=== PATIENT | male | born 1975 | race Caucasian/White ===

== ENCOUNTER → 2017-06-09 | Outpatient (CLI) | payer OTHER | LOC: M WUC 14:56 | DX: M54.5 Low back pain (principal); M47.896 Other spondylosis, lumbar region | CPT/HCPCS: 72110 ==

== ENCOUNTER 2018-06-22 10:09 | Day surgery (SDC) | payer OTHER ==
[~2018-06-22] VITALS: Ht 185.4 cm; Wt 102.1 kg
[~2018-06-22 10:09] MED LIST: AMLO10TA5 PO; DRIS50003 PO; IBUP80TA PO; LISI40TA PO; LR 1,000 ML IV ONE; LevoFLOXacin IV 500 MG in APPROPRIATE DILUENT 1 EA IV ONE; MELA3TAB PO; TIZA4CAP; VENTAER INH
[2018-06-22] MEDS ORDERED: PROPOFOL 200 MG/20 ML VIAL As Ordered ONE (10:44)
[2018-06-22] MEDS ORDERED: SUGAMMADEX SODIUM 500 MG/5 ML VIAL (BRIDION) As Ordered ONE ×2 (10:44→12:33)
[2018-06-22] MEDS ORDERED: ONDANSETRON 4MG/2ML VIAL (J2405) As Ordered ONE (10:44)
[2018-06-22] MEDS ORDERED: dexameTHASONE 4 MG/ML 1ML VIAL (J1100) As Ordered ONE (10:44)
[2018-06-22] MEDS ORDERED: LIDOCAINE 2% INJ 100 MG/5 ML SDV (FOR ANES.) As Ordered ONE (10:44)
[2018-06-22] MEDS ORDERED: ROCURONIUM BROMIDE 50 MG/5 ML VIAL As Ordered ONE ×2 (10:44→12:33)
[2018-06-22] MEDS ORDERED: KETAMINE HCL 200 MG/20 ML VIAL As Ordered ONE (10:45)
[2018-06-22] MEDS ORDERED: KETOROLAC 60 MG/2 ML VIAL (J1885) As Ordered ONE (10:45)
[2018-06-22] MEDS ORDERED: fentaNYL 100 MCG/2 ML INJECTION (J3010) As Ordered ONE ×3 (10:45→13:41)
[2018-06-22] MEDS ORDERED: MIDAZOLAM INJ 2 MG/2 ML VIAL (J2250) As Ordered ONE ×2 (10:46→13:41)
[2018-06-22] MEDS ORDERED: BUPIVACAINE/EPIN 0.25% 30 ML VIAL As Ordered ONE (11:44)
--- NOTE | 2018-06-22 13:31 | RO ---
DATE OF PROCEDURE: 06/22/2018 PREOPERATIVE DIAGNOSIS: Recurrent right inguinal hernia. POSTOPERATIVE DIAGNOSIS: Recurrent right inguinal hernia. PROCEDURE: Open right inguinal hernia repair with UltraPro mesh. SURGEON: Aleksander Forte MD SENIOR OPERATIONS MANAGER: Francisca Kincaid NP (provided retraction, exposure, assistance with skin closure). ESTIMATED BLOOD LOSS (EBL): Was minimal. FLUIDS: Crystalloid. BRIEF PROCEDURE SUMMARY: The patient was brought to the operating room and was given general anesthesia. After adequate anesthesia and preoperative antibiotics were given, the patient was prepped and draped in the usual sterile fashion. Next, an inguinal incision was made with skin knife and electrocautery was used cut through dermis, underlying subcutaneous tissue down to the external oblique muscle fibers. These were opened along its muscle length. The small, very attenuated ilioinguinal nerve was seen preserved, was not dissected off any other tissue, but it was left with the cord structures. There was a direct inguinal hernia appreciated and also the floor the canal was quite attenuated on this side. The direct hernia was imbricated using a [id number] #2-0 Vicryl. The floor of the canal was imbricated with #2-0 Vicryl as well. There was a great deal of previous tear of muscle fibers that were adherent to the inguinal ligament in this area and on medial side the floor of the canal was imbricated using #2-0 Vicryl as well. Once a flat surface was appreciated, then the UltraPro mesh was cut to the appropriate side. Using SecureStrap, I was able to tack this into the lateral border of pubis and #2-0 PDS was used to tack down the mesh along the inguinal ligament up until it was superiorly to the internal ring and the SecureStrap was used on the medial side. The tails of mesh were then tacked down to the obliques as well, and #2-0 Vicryl used to approximate the tails of the mesh around the cord structures. Once again, at this point, the ilioinguinal nerve was retracted out of the way with just a handle of the debakey forceps. Next, external oblique was closed with #2-0 Vicryl. The area was copiously irrigated and #3-0 Vicryl was used close Bradly's, dermis and #4-0 Vicryl was used to approximate the skin. Steri-Strips and a dry sterile dressing was applied. The patient was awakened, extubated, brought to the recovery room awake, alert, hemodynamically stable. Sponge and needle counts correct times two. MTDD
[2018-06-22] MEDS ORDERED: BUPIVACAINE HCL 0.25% 30 ML VIAL As Ordered ONE (13:49)
[2018-06-22] MEDS ORDERED: MORPHINE 4 MG/ML 1ML VIAL/SYRINGE (J2270) IV PRN (14:15)
[2018-06-22] MEDS ORDERED: NORCO, ANEXSIA 5/325MG TABLET (HYDROcodone/ACETAMINOPHEN) PO PRN (14:15)
[2018-06-22] MEDS ORDERED: fentaNYL 100 MCG/2 ML INJECTION (J3010) IV PRN (14:15)
[2018-06-22] MEDS ORDERED: ONDANSETRON 4MG/2ML VIAL (J2405) IV PRN (14:15)
[2018-06-22] MEDS ORDERED: LR 1,000 ML IV SCH (14:15)
[2018-06-22] MEDS ORDERED: HYDROMORPHONE HCL 0.5 MG/ 0.5 ML SYRINGE (J1170 PER 1) IV PRN (14:15)
[2018-06-22 16:10] VITALS: BP 129/75
== END 2018-06-22 16:18 | disposition home or self-care (01) ==
LOC: M SDC 10:09
PROVIDERS: ATTEND Surgery
DX: K40.91 Unilateral inguinal hernia, without obstruction or gangrene, recurrent (principal); I10 Essential (primary) hypertension; K21.9 Gastro-esophageal reflux disease without esophagitis; Z87.891 Personal history of nicotine dependence; Z88.0 Allergy status to penicillin; Z79.899 Other long term (current) drug therapy; M54.5 Low back pain
CPT/HCPCS: 49520; C1781; J1100; J1885; J1956; J2405; J3010

== ENCOUNTER → 2018-07-13 | Outpatient (REF) | payer OTHER ==
[~2018-07-13] MED LIST changes: -LR 1,000 ML IV ONE; -LevoFLOXacin IV 500 MG in APPROPRIATE DILUENT 1 EA IV ONE
[2018-07-13 18:57] LABS: C REACTIVE PROTEIN QUANTITATIV < 0.30 MG/DL (0.00-0.30); RHEUMATOID FACTOR QUANT 10.2 IU/ML (<15.0); URIC ACID 7.8 MG/DL (3.5-7.2)
[2018-07-13 18:59] LABS: BASO % 0.3 % (0.0-1.0); EOS # 0.1 10^3/uL (0.0-0.50); EOS % 1.5 % (0.0-3.0); HEMATOCRIT 45.7 % (42.0-52.0); HEMOGLOBIN 15.2 g/dl (13.5-17.5); LYMPH # 1.6 10^3/uL (1.5-4.5); LYMPH % 23.7 % (24.0-44.0); MEAN CORPUSCULAR HEMOGLOBIN 30.3 pg (27.0-33.0); MEAN CORPUSCULAR HGB CONC 33.3 g/dl (32.0-36.5); MEAN CORPUSCULAR VOLUME 91.2 fl (80.0-96.0); MONO # 0.4 10^3/uL (0.0-0.8); MONO % 6.4 % (0.0-5.0); NEUTROPHILS # 4.5 10^3/uL (1.8-7.7); NEUTROPHILS % 67.7 % (36.0-66.0); PLATELET COUNT, AUTOMATED 243 10^3/uL (150-450); RED BLOOD COUNT 5.01 10^6/uL (4.30-6.10); WHITE BLOOD COUNT 6.7 10^3/uL (4.0-10.0)
[2018-07-13 19:45] LABS: ERYTHROCYTE SEDIMENTATION RATE 4 mm/hr (0-15)
[2018-07-16 00:06] LABS: ANTINUCLEAR ANTIBODIES DIRECT Negative (Negative); Lyme Disease IgG/IgM Antibodie <0.91 ISR (0.00-0.90); Lyme Disease IgM Ab Quantitati <0.80 index (0.00-0.79)
== END ==
LOC: M LABDRAW1 17:35
PROVIDERS: ATTEND Physician Assistant Surgical
DX: M22.11 Recurrent subluxation of patella, right knee (principal)

== ENCOUNTER → 2021-05-23 | Outpatient (REF) | payer OTHER ==
[~2021-05-23] MED LIST changes: -AMLO10TA5 PO; +AMLO1TAB25 PO; -LISI40TA PO; +LISI40TA4 PO; -MELA3TAB PO; +MELA3TAB70 PO
== END ==
LOC: M LAB REF 17:13
PROVIDERS: ATTEND Physician Assistant
DX: L57.0 Actinic keratosis (principal); L91.8 Other hypertrophic disorders of the skin

== ENCOUNTER → 2022-07-04 | Outpatient (CLI) | payer OTHER | LOC: M RAD 15:30 | PROVIDERS: ATTEND Physician Assistant | DX: M25.561 Pain in right knee (principal) ==

== ENCOUNTER → 2022-07-21 | Outpatient (REF) | payer OTHER | LOC: M SFHCDERM 17:41 | PROVIDERS: ATTEND Physician Assistant | DX: R21 Rash and other nonspecific skin eruption (principal) ==

== ENCOUNTER 2024-03-21 06:52 | Day surgery (SDC) | payer OTHER ==
[~2024-03-21] VITALS: Ht 182.9 cm; Wt 102.2 kg
[~2024-03-21 06:52] MED LIST changes: +CETI-24 PO; +COQ150CH PO; +ERGO500029 PO
[2024-03-21] MEDS ORDERED: LIDOCAINE 2% 100MG/5ML SDV (FOR ANES.) As Ordered ONE (07:47)
[2024-03-21] MEDS ORDERED: propofoL 200 MG/20 ML VIAL As Ordered ONE (07:47)
[2024-03-21 08:18] VITALS: BP 117/82; O2SAT 96
== END 2024-03-21 08:23 | disposition home or self-care (01) ==
LOC: M OPP 06:52
PROVIDERS: ATTEND Internal Medicine Gastroenterology
DX: Z12.11 Encounter for screening for malignant neoplasm of colon (principal); D12.0 Benign neoplasm of cecum; K64.8 Other hemorrhoids; I10 Essential (primary) hypertension; K21.9 Gastro-esophageal reflux disease without esophagitis; Z87.891 Personal history of nicotine dependence; Z79.899 Other long term (current) drug therapy

== ENCOUNTER → 2024-08-20 | Outpatient (CLI) | payer OTHER | LOC: M RAD 12:55 | PROVIDERS: ATTEND Orthopaedic Surgery | DX: M94.261 Chondromalacia, right knee (principal) ==